=== PATIENT | male | born 1980 | race Caucasian/White ===

== ENCOUNTER 2017-04-22 23:18 | Emergency (ER) | payer SELFPAY ==
[2017-04-23] MEDS ORDERED: IBUPROFEN 600 MG TABLET PO ONE (02:36)
--- NOTE | 2017-04-23 03:30 | RADIOLOGY REPORT (SQ) ---
EXAM DESCRIPTION: KNEE RIGHT 3 VIEWS COMPLETED DATE/TIME: 04/23/2017 3:13 am REASON FOR STUDY: injury with pain COMPARISON: None. NUMBER OF VIEWS: Four views. TECHNIQUE: AP, lateral, and both oblique radiographic images acquired of the right knee. LIMITATIONS: None. FINDINGS: MINERALIZATION: Normal. BONES: No acute fracture or dislocation. No worrisome bone lesions. JOINT: Small knee effusion. SOFT TISSUES: No soft tissue swelling. No radio-opaque foreign body. OTHER: No other significant finding. IMPRESSION: Small right knee effusion. TECHNICAL DOCUMENTATION: JOB ID: [id number] [employer]- All Rights Reserved
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
[2017-04-23 03:47] VITALS: BP 139/95
== END 2017-04-23 03:48 | disposition home or self-care (01) ==
LOC: ER 23:18
DX: S89.91XA Unspecified injury of right lower leg, initial encounter (principal); X58.XXXA Exposure to other specified factors, initial encounter; Y93.72 Activity, wrestling; F17.200 Nicotine dependence, unspecified, uncomplicated
CPT/HCPCS: 99283

== ENCOUNTER 2017-09-28 18:18 | Emergency (ER) | payer SELFPAY ==
[2017-09-28] MEDS ORDERED: DEXAMETHASONE SOD PHOS INJ 10 MG/1 ML VIAL IV ONE (19:34)
[2017-09-28] MEDS ORDERED: NORMAL SALINE 1000 ML 1,000 ML IV ONE ×2 (19:34→20:44)
--- NOTE | 2017-09-28 19:47 | ER Document Report ---
ED Medical Screen (RME) - General Chief Complaint: Sore Throat Stated Complaint: FLU LIKE SYMPTOMS Time Seen by Provider: 09/28/17 19:33 TRAVEL OUTSIDE OF THE [place] IN LAST 30 DAYS: No - HPI Notes: 09/28/17 19:47 Sore throat generalized weakness feeling unwell - Related Data Allergies/Adverse Reactions: No Known Allergies Allergy (Verified 09/28/17 18:36) Past Medical History - Social History Chew tobacco use (# tins/day): No Frequency of alcohol use: None Drug Abuse: None Renal/ Medical History: Denies: Hx Peritoneal Dialysis - Immunizations Hx Diphtheria, Pertussis, Tetanus Vaccination: Yes Review of Systems - Review of Systems EENT: Throat pain Physical Exam - Vital signs Vitals: Temp Pulse Resp BP Pulse Ox 98.7 F 86 16 136/84 H 97 09/28/17 18:30 09/28/17 18:30 09/28/17 18:30 09/28/17 18:30 09/28/17 18:30 - HEENT Pharynx: Erythema, Exudate Course - Vital Signs Vital signs: Temp Pulse Resp BP Pulse Ox 98.7 F 86 16 136/84 H 97 09/28/17 18:30 09/28/17 18:30 09/28/17 18:30 09/28/17 18:30 09/28/17 18:30
[2017-09-28 20:32] LABS: ABSOLUTE BASOPHILS # (AUTO) 0.1 10^3/uL (0.0-0.2); ABSOLUTE LYMPHOCYTES (AUTO) 1.2 10^3/uL (0.5-4.7); ABSOLUTE NEUT (AUTO) 12.4 10^3/uL (1.7-8.2); BASOPHILS % (AUTO) 0.4 % (0-2); EOSINOPHILS % (AUTO) 0.2 % (0-6); HEMATOCRIT 49.8 % (37.9-51.0); HEMOGLOBIN 16.8 g/dL (13.5-17.0); HGB HCT DIFFERENCE 0.6; LYMPHOCYTES % (AUTO) 7.9 % (13-45); MEAN CORPUSCULAR HEMOGLOBIN 30.9 pg (27.0-33.4); MEAN CORPUSCULAR HGB CONC 33.7 g/dL (32.0-36.0); MEAN CORPUSCULAR VOLUME 92 fl (80-97); MONOCYTES % (AUTO) 12.4 % (3-13); RED BLOOD COUNT 5.43 10^6/uL (4.35-5.55); RED CELL DISTRIBUTION WIDTH 13.2 % (11.5-14.0); SEGMENTED NEUTROPHILS % (AUTO) 79.1 % (42-78); WHITE BLOOD COUNT 15.7 10^3/uL (4.0-10.5)
--- NOTE | 2017-09-28 20:40 | ER Document Report ---
ED ENT - General Chief Complaint: Sore Throat Stated Complaint: FLU LIKE SYMPTOMS Time Seen by Provider: 09/28/17 19:33 Mode of Arrival: Ambulatory Information source: Patient Notes: 37-year-old smoker male complaining of sore throat, odynophagia, fever, myalgias since Saturday. No vomiting or diarrhea. No rash. No chest pain or shortness of breath. No cough. TRAVEL OUTSIDE OF THE [place] IN LAST 30 DAYS: No - Related Data Allergies/Adverse Reactions: No Known Allergies Allergy (Verified 09/28/17 18:36) Past Medical History - General Information source: Patient - Social History Smoking Status: Current Every Day Smoker Chew tobacco use (# tins/day): No Frequency of alcohol use: None Drug Abuse: None Lives with: Other Family History: Reviewed & Not Pertinent Patient has suicidal ideation: No Patient has homicidal ideation: No - Medical History Medical History: Negative Renal/ Medical History: Denies: Hx Peritoneal Dialysis Surgical Hx: Negative - Immunizations Hx Diphtheria, Pertussis, Tetanus Vaccination: Yes Review of Systems - Review of Systems Constitutional: See HPI EENT: See HPI Cardiovascular: No symptoms reported Respiratory: No symptoms reported Gastrointestinal: No symptoms reported Genitourinary: No symptoms reported Male Genitourinary: No symptoms reported Musculoskeletal: No symptoms reported Skin: No symptoms reported Hematologic/Lymphatic: No symptoms reported Neurological/Psychological: No symptoms reported Physical Exam - Vital signs Vitals: Temp Pulse Resp BP Pulse Ox 98.7 F 86 16 136/84 H 97 09/28/17 18:30 09/28/17 18:30 09/28/17 18:30 09/28/17 18:30 09/28/17 18:30 Interpretation: Normal - General General appearance: Appears well, Alert - HEENT Head: Normocephalic, Atraumatic Eyes: Normal Conjunctiva: Normal Pupils: PERRL Tympanic membrane: Normal Mucous membranes: Normal Pharynx: Erythema, Tonsillar hypertrophy - exudative. No: Uvular edema Neck: Normal, Lymphadenopathy - anterior bilateral, Supple Notes: no peritonsillar edema or abscess - Respiratory Respiratory status: No respiratory distress Chest status: Nontender Breath sounds: Normal Chest palpation: Normal - Cardiovascular Rhythm: Regular Heart sounds: Normal auscultation Murmur: No - Abdominal Inspection: Normal Distension: No distension Bowel sounds: Normal Tenderness: Nontender. No: Tender Organomegaly: No organomegaly - Back Back: Normal, Nontender - Extremities General upper extremity: Normal inspection, Nontender, Normal color, Normal ROM , Normal temperature General lower extremity: Normal inspection, Nontender, Normal color, Normal ROM , Normal temperature, Normal weight bearing. No: Tena's sign - Neurological Neuro grossly intact: Yes Cognition: Normal Orientation: AAOx4 [place] Coma Scale Eye Opening: Spontaneous [place] Coma Scale Verbal: Oriented [place] Coma Scale Motor: Obeys Commands [place] Coma Scale Total: 15 Speech: Normal Motor strength normal: LUE, RUE, LLE, RLE Sensory: Normal - Psychological Associated symptoms: Normal affect, Normal mood - Skin Skin Temperature: Warm Skin Moisture: Dry Skin Color: Normal Skin irregularity: negative: Rash Course - Re-evaluation Re-evalutation: 09/28/17 21:16 rapid strept positive, influenza negative. 16,000 white count, mild left shift. 09/28/17 21:17 - Vital Signs Vital signs: Temp Pulse Resp BP Pulse Ox 99.8 F 87 16 114/70 97 09/28/17 21:42 09/28/17 21:42 09/28/17 21:42 09/28/17 21:42 09/28/17 21:42 - Laboratory Result Diagrams: 09/28/17 20:19 09/28/17 21:00 Laboratory results interpreted by me: 09/28/17 09/28/17 20:19 21:00 WBC 15.7 H Plt Count 147 L Seg Neutrophils % 79.1 H Lymphocytes % 7.9 L Absolute Neutrophils 12.4 H Absolute Monocytes 2.0 H Carbon Dioxide 31 H Discharge - Discharge Clinical Impression: Exudative tonsillitis Condition: Good Disposition: HOME, SELF-CARE Instructions: Corticosteroid Medication ([facility]), Penicillin V K ([facility]), Strep Throat ([facility]), Tonsillitis ([facility]) Additional Instructions: drink plenty of fluids to er if worse motrin for pain and inflammation. Prescriptions: Ibuprofen [Motrin 800 mg Tablet] 800 mg PO Q8HP PRN #30 tablet PRN Reason: Penicillin V Potassium [Penicillin Vk 500 mg Tablet] 500 mg PO QID #40 tablet Forms: Return to Work
[2017-09-28] MEDS ORDERED: PENICILLIN V POTASSIUM 500 MG TABLET PO ONE (21:08)
[2017-09-28 21:26] LABS: ANION GAP 11 (5-19); BLOOD UREA NITROGEN 12 mg/dL (7-20); CALCIUM 9.2 mg/dL (8.4-10.2); CARBON DIOXIDE 31 mmol/L (22-30); CHLORIDE 101 mmol/L (98-107); CREATININE RESULT 1.01 mg/dL (0.52-1.25); GLUCOSE 99 mg/dL (75-110); POTASSIUM 4.6 mmol/L (3.6-5.0); SODIUM 143.2 mmol/L (137-145)
[2017-09-28 21:43] VITALS: BP 114/70
== END 2017-09-28 22:00 | disposition home or self-care (01) ==
LOC: ER 18:18
DX: J03.90 Acute tonsillitis, unspecified (principal); R13.10 Dysphagia, unspecified; R50.9 Fever, unspecified; M79.1 Myalgia; F17.200 Nicotine dependence, unspecified, uncomplicated
CPT/HCPCS: 99283; 96361; 96374; 36415; 87880; 85025; 86308; 80048; 87804; J7030; J1100

== ENCOUNTER 2018-02-26 12:39 | Emergency (ER) | payer SELFPAY ==
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
[2018-02-26 14:36] LABS: APPEARANCE,URINE CLEAR; BILIRUBIN,URINE NEGATIVE (NEGATIVE); COLOR,URINE YELLOW; GLUCOSE, URINE NEGATIVE (NEGATIVE); KETONES,URINE NEGATIVE (NEGATIVE); LEUKOCYTE ESTERASE,URINE NEGATIVE (NEGATIVE); NITRITE,URINE NEGATIVE (NEGATIVE); PROTEIN,URINE NEGATIVE (NEGATIVE); URINE SPECIFIC GRAVITY 1.012; UROBILINOGEN,URINE NEGATIVE mg/dL (<2.0)
[2018-02-26 16:15] LABS: ABSOLUTE BASOPHILS # (AUTO) 0.1 10^3/uL (0.0-0.2); ABSOLUTE EOSINOPHILS # (AUTO) 0.1 10^3/uL (0.0-0.6); ABSOLUTE LYMPHOCYTES (AUTO) 1.8 10^3/uL (0.5-4.7); ABSOLUTE MONOCYTES (AUTO) 0.6 10^3/uL (0.1-1.4); ABSOLUTE NEUT (AUTO) 4.8 10^3/uL (1.7-8.2); BASOPHILS % (AUTO) 0.8 % (0-2); EOSINOPHILS % (AUTO) 1.3 % (0-6); HEMATOCRIT 46.3 % (37.9-51.0); HEMOGLOBIN 15.6 g/dL (13.5-17.0); LYMPHOCYTES % (AUTO) 24.8 % (13-45); MEAN CORPUSCULAR HEMOGLOBIN 31.1 pg (27.0-33.4); MEAN CORPUSCULAR HGB CONC 33.7 g/dL (32.0-36.0); MEAN CORPUSCULAR VOLUME 92 fl (80-97); PLATELET COUNT 190 10^3/uL (150-450); RED BLOOD COUNT 5.03 10^6/uL (4.35-5.55); RED CELL DISTRIBUTION WIDTH 13.4 % (11.5-14.0); SEGMENTED NEUTROPHILS % (AUTO) 65.1 % (42-78); TOTAL CELLS COUNTED % (AUTO) 100 %; WHITE BLOOD COUNT 7.4 10^3/uL (4.0-10.5)
[2018-02-26 16:37] LABS: ALANINE AMINOTRANSFERASE 26 U/L (21-72); ALBUMIN 4.2 g/dL (3.5-5.0); ALKALINE PHOSPHATASE 46 U/L (38-126); ANION GAP 10 (5-19); ASPARTATE AMINO TRANSFERASE 22 U/L (17-59); BILIRUBIN,DIRECT 0.3 mg/dL (0.0-0.4); BILIRUBIN,TOTAL 0.3 mg/dL (0.2-1.3); BLOOD UREA NITROGEN 13 mg/dL (7-20); CALCIUM 10.1 mg/dL (8.4-10.2); CARBON DIOXIDE 34 mmol/L (22-30); CHLORIDE 103 mmol/L (98-107); GLUCOSE 103 mg/dL (75-110); POTASSIUM 4.8 mmol/L (3.6-5.0); TOTAL PROTEIN 7.5 g/dL (6.3-8.2)
--- NOTE | 2018-02-26 17:34 | RADIOLOGY REPORT (SQ) ---
EXAM DESCRIPTION: U/S RETROPERITON (RENAL/AORTA) COMPLETED DATE/TIME: 02/26/2018 5:08 pm REASON FOR STUDY: bilateral flank pain COMPARISON: None. TECHNIQUE: Dynamic and static grayscale images acquired of the kidneys and bladder and recorded on P ACS. Additional selected color Doppler and spectral images recorded. LIMITATIONS: None. FINDINGS: RIGHT KIDNEY: Normal size. Normal echogenicity. No solid or suspicious masses. No hydronep hrosis. No calcifications. LEFT KIDNEY: Normal size. Normal echogenicity. No solid or suspicious masses. No hydronephrosis. No calcifications. BLADDER: No masses. OTHER FINDINGS: No other significant finding. IMPRESSION: NORMAL RENAL AND BLADDER ULTRASOUND. TECHNICAL DOCUMENTATION: JOB ID: [id number] [place]-72 2010 [employer]- All Rights Reserved Reading location - IP/workstation name: [email or web address]
[2018-02-26 17:52] VITALS: BP 116/78
[2018-02-26 19:18] LABS: CHLAM PCR NOT DETECTED (NOT DETECT); GON PCR NOT DETECTED (NOT DETECT)
== END 2018-02-26 18:18 | disposition home or self-care (01) ==
LOC: ER 12:39
DX: M54.5 Low back pain (principal); R31.29 Other microscopic hematuria; R30.0 Dysuria; F17.200 Nicotine dependence, unspecified, uncomplicated
CPT/HCPCS: 36415; 76770; 80053; 81001; 85025; 87086; 87491; 87591; 99284

== ENCOUNTER 2020-07-08 13:18 | Emergency (ER) | payer SELFPAY ==
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
[2020-07-08 14:21] LABS: ABSOLUTE EOSINOPHILS # (AUTO) 0.1 10^3/uL (0.0-0.6); ABSOLUTE LYMPHOCYTES (AUTO) 1.7 10^3/uL (0.5-4.7); ABSOLUTE MONOCYTES (AUTO) 0.5 10^3/uL (0.1-1.4); ABSOLUTE NEUT (AUTO) 3.9 10^3/uL (1.7-8.2); BASOPHILS % (AUTO) 0.6 % (0-2); EOSINOPHILS % (AUTO) 1.5 % (0-6); HEMATOCRIT 48.5 % (37.9-51.0); HEMOGLOBIN 16.7 g/dL (13.5-17.0); LYMPHOCYTES % (AUTO) 27.2 % (13-45); MEAN CORPUSCULAR HEMOGLOBIN 31.9 pg (27.0-33.4); MEAN CORPUSCULAR HGB CONC 34.5 g/dL (32.0-36.0); MEAN CORPUSCULAR VOLUME 93 fl (80-97); MONOCYTES % (AUTO) 8.4 % (3-13); PLATELET COUNT 169 10^3/uL (150-450); RED BLOOD COUNT 5.24 10^6/uL (4.35-5.55); RED CELL DISTRIBUTION WIDTH 13.1 % (11.5-14.0); SEGMENTED NEUTROPHILS % (AUTO) 62.3 % (42-78); TOTAL CELLS COUNTED % (AUTO) 100 %; WHITE BLOOD COUNT 6.2 10^3/uL (4.0-10.5)
[2020-07-08 14:23] LABS: APPEARANCE,URINE SLIGHTLY-CLOUDY; BILIRUBIN,URINE NEGATIVE (NEGATIVE); COLOR,URINE YELLOW; GLUCOSE, URINE NEGATIVE (NEGATIVE); KETONES,URINE NEGATIVE (NEGATIVE); LEUKOCYTE ESTERASE,URINE NEGATIVE (NEGATIVE); NITRITE,URINE NEGATIVE (NEGATIVE); PROTEIN,URINE NEGATIVE (NEGATIVE); URINE SPECIFIC GRAVITY 1.009; UROBILINOGEN,URINE NEGATIVE mg/dL (<2.0)
[2020-07-08 14:43] LABS: ALBUMIN 4.6 g/dL (3.5-5.0); ALKALINE PHOSPHATASE 54 U/L (38-126); ANION GAP 11 (5-19); ASPARTATE AMINO TRANSFERASE 27 U/L (17-59); BILIRUBIN,DIRECT 0.3 mg/dL (0.0-0.4); BILIRUBIN,TOTAL 0.9 mg/dL (0.2-1.3); BLOOD UREA NITROGEN 11 mg/dL (7-20); CARBON DIOXIDE 27 mmol/L (22-30); CHLORIDE 104 mmol/L (98-107); GLUCOSE 102 mg/dL (75-110); POTASSIUM 4.8 mmol/L (3.6-5.0); TOTAL PROTEIN 7.9 g/dL (6.3-8.2); URINE AMPHETAMINES SCREEN NEGATIVE; URINE BARBITURATES SCREEN NEGATIVE; URINE BENZODIAZEPINES SCREEN NEGATIVE; URINE COCAINE SCREEN NEGATIVE; URINE METHADONE SCREEN NEGATIVE; URINE PHENCYCLIDINE SCREEN NEGATIVE
[2020-07-08 14:44] LABS: URINE MARIJUANA (THC) SCREEN UNCONFIRMED POSITIVE
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
[2020-07-08] MEDS ORDERED: KETOROLAC TROMETHAMINE 60 MG/2 ML SDV IM ONE (18:42)
--- NOTE | 2020-07-08 18:47 | RADIOLOGY REPORT (SQ) ---
CT OF THE CHEST, ABDOMEN, AND PELVIS HISTORY: Left-sided chest and abdominal pain. COMPARISON: None. TECHNIQUE: CT scan of the chest, abdomen, and pelvis without IV contrast. This exam was performed according to our departmental dose-optimization program, which includes automated exposure control, adjustment of the mA and/or kV according to patient size and/or use of iterative reconstruction technique. FINDINGS: The thyroid gland is unremarkable. No mediastinal or hilar adenopathy. The heart size is normal without pericardial effusion. No consolidation, pleural effusion, or pneumothorax. There is hyperdense material within the left posterior pleural which may be sequela of old trauma or surgery. There is a 5.6 cm cystic structure in the region of the left adrenal gland. The liver, spleen, pancreas, gallbladder, adrenal glands, and kidneys are unremarkable. There is a simple cyst in the left kidney. No obstructing urinary stones are seen. The pelvic organs are also unremarkable. No bowel obstruction or inflammation. No intraperitoneal free fluid, free air, or adenopathy. There is mild inflammation in the mesentery with a few prominent mesenteric lymph nodes. No acute bony findings are seen. No abnormal body wall hernia is seen. The aorta is normal in caliber. IMPRESSION: 1. No acute intrathoracic findings. 2. Mild stranding and lymph nodes in the mesentery, which may represent mesenteric panniculitis or may be the sequela of recent infection/inflammation. 3. 5.6 cm cystic structure in the region of the left adrenal gland, nonspecific but may be congenital or sequela of old injury.
[2020-07-08 20:40] VITALS: BP 112/64
== END 2020-07-08 20:41 | disposition home or self-care (01) ==
LOC: ER 13:18
DX: I88.0 Nonspecific mesenteric lymphadenitis (principal); R10.12 Left upper quadrant pain; R10.9 Unspecified abdominal pain; R42 Dizziness and giddiness; R53.1 Weakness
CPT/HCPCS: 99285; 96372; 36415; 87086; 85025; 80053; 81001; 80307; 71250; 74176; J1885